=== PATIENT | female | born 1990 | race Caucasian/White ===

== ENCOUNTER 2018-07-15 06:12 | Inpatient (IN) | payer BC ==
[~2018-07-15] VITALS: Ht 167.6 cm; Wt 69.0 kg
[2018-07-15] VITALS (61 sets, daily range): BP systolic 99–148; BP diastolic 48–88
--- NOTE | 2018-07-15 06:48 | Emergency Room Report ---
History of Present Illness General Chief Complaint: Behavioral Complaint Source: EMS (Vance Zavala DO) Present Illness HPI Patient presents by paramedics and police department Patient was reported to have a self-inflicted laceration to the left arm There was question of suicidal ideation and attempt Upon arrival the patient herself is not verbal is responsive to physical stimuli Maintaining appropriate gag reflex However the history of present illness is significantly limited Unknown previous attempts Unknown other trauma (Vance Zavala DO) Allergies: Coded Allergies: No Known Allergies (Unverified , 07/15/18) Patient History Limited by: medical condition Past Medical History: see triage record Pertinent Family History: unable to obtain Reviewed Nursing Documentation: PMH: Agreed; PSxH: Agreed (Vance Zavala DO) Nursing Documentation-PMH Past Medical History: No Stated History (Vance Zavala DO) Review of Systems All Other Systems: limited - Other than the ones mentioned in the history of present illness all others are reviewed however they do stay limited due to the patient's mental status (Vance Zavala DO) Physical Exam Vital Signs Date Time Temp Pulse Resp B/P (MAP) Pulse Ox O2 Delivery O2 Flow Rate FiO2 07/15/18 06:07 97.9 109 18 123/67 98 Room Air Sp02 EP Interpretation: reviewed, normal General Appearance: mild distress - Patient appears altered Head: normocephalic, atraumatic Eyes: bilateral eye PERRL ENT: normal pharynx, TMs + canals normal, uvula midline Neck: supple, thyroid normal Respiratory: lungs clear, no respiratory distress, no retraction, no accessory muscle use Cardiovascular #1: regular rate, rhythm Gastrointestinal: non tender, soft Musculoskeletal: other - Patient withdrawing from physical stimuli Neurologic: responsive - As above otherwise decreased GCS, respirations appropriate Skin: other - Approximately 2-1/2 cm laceration mid left palmar aspect of the forearm Lymphatic: no adenopathy (Vance Zavala DO) Procedures Laceration/Wound Repair Laceration/Wound Repair : Consent: Emergent Wound Location: upper extremity Wound's Depth, Shape: into muscle Wound Length (cm): 2 Wound Explored: contaminated Irrigated w/ Saline (ccs): 200 Betadine Prep?: Yes Anesthesia: 1% Lidocaine Volume Anesthetic (ccs): 2 Wound Debrided: moderate Wound Repaired With: sutures Suture Size/Type: 4:0 Number of Sutures: 6 Patient Tolerated: Well Complications: None Progress After further irrigation and cleansing the laceration is fairly deep going through the dermis through the adipose and just into the superficial aspect of the muscle, I do not see any obvious tendon involvement, however patient is altered and cannot follow commands and have appropriate examination (Vance Zavala DO) Medical Decision Making Restraint Attestation Vance Miramontes DO, have personally evaluated this patient. Laboratory tests have been reviewed and addressed accordingly. The patient is deemed to present a danger to themselves and/or others. This is based on the exam, history ( provided by patient, EMS/[facility] and/or family) and observed or reported behavior. Attempts for non-invasive measures have been considered and/or attempted, however, have been futile. It is in the best interest of the nursing staff, the patient, and others involved in this patient's care that behavioral restraints be applied. Patient evaluation reveals the following: (Vance Zavala DO) Diagnostic Impression: Primary Impression: Behavioral change Additional Impressions: Suicide attempt Laceration ER Course Given the patient's history and presentation Repair of the laceration is performed Patient has further blood work to medically evaluate the patient Patient does have amphetamine and marijuana positive after prolonged observation has become awake and alert responsive patient does not answer questions regarding suicidal or homicidal thoughts as patient awakened and became more verbal and responsive, patient became agitated and wanted to get up and leave. she required restraints for this reason I spoke with parents in the room for approximately 15 minutes. During this time it was reported that the patient has extensive drug abuse history but had been doing better recently and kelley d a new job as well. Patient was somewhat agitated trying to sit up at the bed, had mainly incoherent speech but was trying to communicate. Just prior to the family arriving, patient had seemed somewhat less agitated, and speech had been more clear as well. patients vitals continued to be appropriate with a HR of 70 patient was given oral ativan and pending further evaluation with psychiatric specialty. Is further medically cleared and requires psychiatric evaluation Labs Test 07/15/18 06:50 White Blood Count 5.3 K/UL (4.8-10.8) Red Blood Count 4.12 M/UL (4.20-5.40) Hemoglobin 11.7 G/DL (12.0-16.0) Hematocrit 36.2 % (37.0-47.0) Mean Corpuscular Volume 88 FL (80-99) Mean Corpuscular Hemoglobin 28.5 PG (27.0-31.0) Mean Corpuscular Hemoglobin Concent 32.5 G/DL (32.0-36.0) Red Cell Distribution Width 13.1 % (11.6-14.8) Platelet Count 252 K/UL (150-450) Mean Platelet Volume 6.3 FL (6.5-10.1) Neutrophils (%) (Auto) 57.9 % (45.0-75.0) Lymphocytes (%) (Auto) 30.2 % (20.0-45.0) Monocytes (%) (Auto) 8.1 % (1.0-10.0) Eosinophils (%) (Auto) 2.9 % (0.0-3.0) Basophils (%) (Auto) 1.0 % (0.0-2.0) Urine HCG, Qualitative Negative (NEGATIVE) Sodium Level 142 MMOL/L (136-145) Potassium Level 3.1 MMOL/L (3.5-5.1) Chloride Level 107 MMOL/L (98-107) Carbon Dioxide Level 23 MMOL/L (21-32) Anion Gap 13 mmol/L (5-15) Blood Urea Nitrogen 14 mg/dL (7-18) Creatinine 0.7 MG/DL (0.55-1.30) Estimat Glomerular Filtration Rate > 60 mL/min (>60) Glucose Level 65 MG/DL (74-106) Calcium Level 8.9 MG/DL (8.5-10.1) Total Bilirubin 0.2 MG/DL (0.2-1.0) Aspartate Amino Transf (AST/SGOT) 37 U/L (15-37) Alanine Aminotransferase (ALT/SGPT) 36 U/L (12-78) Alkaline Phosphatase 73 U/L (46-116) Total Protein 8.2 G/DL (6.4-8.2) Albumin 4.1 G/DL (3.4-5.0) Globulin 4.1 g/dL Albumin/Globulin Ratio 1.0 (1.0-2.7) Salicylates Level 2.8 ug/mL (2.8-20) Urine Opiates Screen Negative (NEGATIVE) Acetaminophen Level < 2 MCG/ML (10-30) Urine Barbiturates Screen Negative (NEGATIVE) Phencyclidine (PCP) Screen Negative (NEGATIVE) Urine Amphetamines Screen Positive (NEGATIVE) Urine Benzodiazepines Screen Negative (NEGATIVE) Urine Cocaine Screen Negative (NEGATIVE) Urine Marijuana (THC) Screen Positive (NEGATIVE) Serum Alcohol 203 mg/dL (SachaalexsandramelizaVance ) ER Course Case was signed out to me for final disposition. Initially patient was supposed to be medically cleared and transferred to psychiatric facility. Patient's behavior however became more erratic. It appeared the patient was starting to respond to internal stimuli. Patient was given Ativan but without much improvement. Because of this patient continued to receive doses of Ativan as well as one dose of Geodon orally. Patient unfortunately deteriorated. Patient became more confused. Because of patient's progressively worsening condition patient required emergent intervention. In a monitor setting patient was given more Ativan to try to sedate her them patient was finally sedated but appeared to have some difficulty with maintaining her airway. There is concerned that because a severe amount overdose patient likely will require intubation to control her airway as well as to control sedation and treat the patient for her overdose. Case was discussed in detail with poison control. Patient was intubated. After intubation patient was given propofol for sedation. Patient appeared to be well sedated on propofol vital signs normalized and patient appeared to be more comfortable. At this time patient's left upper extremity laceration wound was reexposed. Unfortunately patient in her agitation had cause wound dehiscence. The wound was irrigated wound was prepared again. Case was discussed in detail with Dr. Jozef Alvarez patient will be admitted to the ICU. Case was also discussed with Dr. Mcintosh. Case was discussed with poison center. Because patient's EKG show evidence of QTC prolongation. Patient will be given magnesium 2 g. EKG interpretation. EKG shows normal sinus rhythm. QTC is slightly elongated. No evidence of ectopy. Rhythm strip interpretation: Normal sinus rhythm. Ventricular rate approximately 80s. No evidence of ectopy. Procedure note: Intubation procedure: Patient was preoxygenated and intubated using rapid sequence intubation. Patient was given rocuronium and etomidate. There was adequate paralysis. Patient's vocal cords was visualized with direct laryngoscopy. 7.5 ET tube was inserted. The balloon was inflated. There is good color change a CO2 detector. There is no complications associated procedure. Patient's O2 saturation remained 100% throughout the entire procedure. Patient tolerated the procedure without difficulty. Chest x-ray confirms good placement of ET tube. Laceration repair: Patient's left upper extremity was repaired using 3-0 Vicryl. The wound was irrigated sterilely prepared then the laceration was closed. Total length laceration was approximately 4 cm in length. There is no competitions social procedure. Patient told procedure without difficulty. X-ray interpretation: 1 view portable chest x-ray. Indication: Intubation. Findings: Normal lung. Normal heart size. Normal bone structure. ET tube in good position. Interpretation: Appropriate placement of ET tube. Normal lung structure otherwise. Electronically signed by Prudencio Muñoz MD Critical care note: Patient had a critical medical condition which untreated could potentially result in life or limb threatening injury. Total critical care time excluding procedures was approximately 45 minutes. Patient require emergent intervention. Labs Test 07/15/18 06:50 White Blood Count 5.3 K/UL (4.8-10.8) Red Blood Count 4.12 M/UL (4.20-5.40) Hemoglobin 11.7 G/DL (12.0-16.0) Hematocrit 36.2 % (37.0-47.0) Mean Corpuscular Volume 88 FL (80-99) Mean Corpuscular Hemoglobin 28.5 PG (27.0-31.0) Mean Corpuscular Hemoglobin Concent 32.5 G/DL (32.0-36.0) Red Cell Distribution Width 13.1 % (11.6-14.8) Platelet Count 252 K/UL (150-450) Mean Platelet Volume 6.3 FL (6.5-10.1) Neutrophils (%) (Auto) 57.9 % (45.0-75.0) Lymphocytes (%) (Auto) 30.2 % (20.0-45.0) Monocytes (%) (Auto) 8.1 % (1.0-10.0) Eosinophils (%) (Auto) 2.9 % (0.0-3.0) Basophils (%) (Auto) 1.0 % (0.0-2.0) Urine HCG, Qualitative Negative (NEGATIVE) Sodium Level 142 MMOL/L (136-145) Potassium Level 3.1 MMOL/L (3.5-5.1) Chloride Level 107 MMOL/L (98-107) Carbon Dioxide Level 23 MMOL/L (21-32) Anion Gap 13 mmol/L (5-15) Blood Urea Nitrogen 14 mg/dL (7-18) Creatinine 0.7 MG/DL (0.55-1.30) Estimat Glomerular Filtration Rate > 60 mL/min (>60) Glucose Level 65 MG/DL (74-106) Calcium Level 8.9 MG/DL (8.5-10.1) Total Bilirubin 0.2 MG/DL (0.2-1.0) Aspartate Amino Transf (AST/SGOT) 37 U/L (15-37) Alanine Aminotransferase (ALT/SGPT) 36 U/L (12-78) Alkaline Phosphatase 73 U/L (46-116) Total Protein 8.2 G/DL (6.4-8.2) Albumin 4.1 G/DL (3.4-5.0) Globulin 4.1 g/dL Albumin/Globulin Ratio 1.0 (1.0-2.7) Salicylates Level 2.8 ug/mL (2.8-20) Urine Opiates Screen Negative (NEGATIVE) Acetaminophen Level < 2 MCG/ML (10-30) Urine Barbiturates Screen Negative (NEGATIVE) Phencyclidine (PCP) Screen Negative (NEGATIVE) Urine Amphetamines Screen Positive (NEGATIVE) Urine Benzodiazepines Screen Negative (NEGATIVE) Urine Cocaine Screen Negative (NEGATIVE) Urine Marijuana (THC) Screen Positive (NEGATIVE) Serum Alcohol 203 mg/dL (Prudencio Muñoz MD) Rhythm Strip Diag. Results EP Interpretation: yes Rate: 88 Rhythm: NSR, no PVC's, no ectopy (Vance Zavala DO) Last Vital Signs Date Time Temp Pulse Resp B/P (MAP) Pulse Ox O2 Delivery O2 Flow Rate FiO2 07/15/18 06:07 97.9 109 18 123/67 98 Room Air Status: improved (Vance Zavala DO) Status: improved (Prudencio Muñoz MD) Condition: Improved Signed Out To: Dr muñoz, pending further psychiatric disposition (Vance Zavala DO) Vance Zavala DO Jul 15, 2018 06:48 Prudencio Muñoz MD Jul 15, 2018 20:11
[2018-07-15 07:29] LABS: EOSINOPHILS % (AUTO) 2.9 % (0.0-3.0); HEMATOCRIT 36.2 % (37.0-47.0); HEMOGLOBIN 11.7 G/DL (12.0-16.0); LYMPHOCYTES % (AUTO) 30.2 % (20.0-45.0); MEAN CORPUSCULAR VOLUME 88 FL (80-99); MONOCYTES % (AUTO) 8.1 % (1.0-10.0); NEUTROPHILS % (AUTO) 57.9 % (45.0-75.0); PLATELET COUNT 252 K/UL (150-450); RED BLOOD COUNT 4.12 M/UL (4.20-5.40); RED CELL DISTRIBUTION WIDTH 13.1 % (11.6-14.8); WHITE BLOOD COUNT 5.3 K/UL (4.8-10.8)
[2018-07-15 07:34] LABS: ANION GAP 13 mmol/L (5-15); BLOOD UREA NITROGEN 14 mg/dL (7-18); CALCIUM 8.9 MG/DL (8.5-10.1); CARBON DIOXIDE 23 MMOL/L (21-32); CHLORIDE 107 MMOL/L (98-107); CREATININE 0.7 MG/DL (0.55-1.30); POTASSIUM 3.1 MMOL/L (3.5-5.1); SODIUM 142 MMOL/L (136-145)
[2018-07-15 07:39] LABS: ALANINE AMINOTRANSFERASE 36 U/L (12-78); ALBUMIN 4.1 G/DL (3.4-5.0); ALKALINE PHOSPHATASE 73 U/L (46-116); ASPARTATE AMINO TRANSFERASE 37 U/L (15-37); BILIRUBIN,TOTAL 0.2 MG/DL (0.2-1.0)
[2018-07-15] MEDS ORDERED: LORazepam Inj 2mg/ml 1ml IV ONE ×7 (08:45→18:15)
[2018-07-15] MEDS ORDERED: D5 1/2NS 1,000 ML IV STA (10:35)
[2018-07-15] MEDS ORDERED: LORazepam 1mg tab ORAL ONE (12:00)
[2018-07-15] MEDS ORDERED: Haloperidol 5mg/ml Inj IM ONE (13:15)
[2018-07-15] MEDS ORDERED: DiphenhydrAMINE 50mg/ml Inj IVP ONE (15:30)
[2018-07-15] MEDS ORDERED: Ziprasidone 20mg cap ORAL ONE (16:15)
[2018-07-15] MEDS ORDERED: LORazepam Inj 2mg/ml 1ml ONE (18:08)
[2018-07-15] MEDS ORDERED: Propofol 200mg/20ml IV ONE (18:29)
[2018-07-15] MEDS ORDERED: Morphine Sulfate 4mg/ml Inj (IV/IM USE ONLY) IVP PRN (19:15)
[2018-07-15] MEDS ORDERED: Nitroglycerin Subl 0.4mg tab SL PRN (19:15)
[2018-07-15] MEDS ORDERED: Albuterol/Ipratropium 3ml neb HHN PRN (19:15)
[2018-07-15] MEDS ORDERED: Bacitracin Oint UD TOPIC ONE (20:04)
[2018-07-15] MEDS: D5 1/2NS 1,000 ML IV SCH (20:27)
[2018-07-15 20:48] LABS: HEMATOCRIT 31.2 % (37.0-47.0); HEMOGLOBIN 10.4 G/DL (12.0-16.0); MEAN CORPUSCULAR VOLUME 89 FL (80-99); PLATELET COUNT 212 K/UL (150-450); RED BLOOD COUNT 3.53 M/UL (4.20-5.40); RED CELL DISTRIBUTION WIDTH 12.7 % (11.6-14.8); WHITE BLOOD COUNT 11.6 K/UL (4.8-10.8)
[2018-07-15] MEDS: Heparin 5000 units/ml inj SUBQ SCH (21:00)
[2018-07-15 21:02] LABS: ANION GAP 12 mmol/L (5-15); BLOOD UREA NITROGEN 14 mg/dL (7-18); CALCIUM 7.9 MG/DL (8.5-10.1); CARBON DIOXIDE 23 MMOL/L (21-32); CHLORIDE 110 MMOL/L (98-107); CREATININE 0.7 MG/DL (0.55-1.30); POTASSIUM 4.1 MMOL/L (3.5-5.1); SODIUM 145 MMOL/L (136-145)
[2018-07-15 21:16] LABS: ALANINE AMINOTRANSFERASE 47 U/L (12-78); ALBUMIN 3.7 G/DL (3.4-5.0); ALBUMIN/GLOBULIN RATIO 1.1 (1.0-2.7); ALKALINE PHOSPHATASE 61 U/L (46-116); ASPARTATE AMINO TRANSFERASE 138 U/L (15-37); BILIRUBIN,TOTAL 0.4 MG/DL (0.2-1.0); CREATINE KINASE 9480 U/L (26-308); TRIGLYCERIDES 28 MG/DL (30-150)
[2018-07-15] MEDS ORDERED: Succinylcholine 20mg/ml 10ml vial ONE (22:29)
[2018-07-15] MEDS ORDERED: Etomidate 40mg/20ml Inj IV ONE (22:29)
[2018-07-15] MEDS ORDERED: Zemuron 50mg/5ml Inj IV ONE (22:29)
[2018-07-15] MEDS: LORazepam Inj 2mg/ml 1ml IV PRN (22:49)
[2018-07-16] VITALS (39 sets, daily range): BP systolic 99–156; BP diastolic 47–84
[2018-07-16] MEDS: LORazepam Inj 2mg/ml 1ml IV PRN ×2 (05:01→11:04)
[2018-07-16 08:27] LABS: BASOPHILS % (AUTO) 0.9 % (0.0-2.0); EOSINOPHILS % (AUTO) 1.2 % (0.0-3.0); HEMATOCRIT 31.3 % (37.0-47.0); HEMOGLOBIN 10.5 G/DL (12.0-16.0); LYMPHOCYTES % (AUTO) 19.6 % (20.0-45.0); MEAN CORPUSCULAR VOLUME 87 FL (80-99); MONOCYTES % (AUTO) 6.5 % (1.0-10.0); NEUTROPHILS % (AUTO) 71.8 % (45.0-75.0); PLATELET COUNT 212 K/UL (150-450); RED BLOOD COUNT 3.59 M/UL (4.20-5.40); WHITE BLOOD COUNT 7.3 K/UL (4.8-10.8)
[2018-07-16] MEDS: D5 1/2NS 1,000 ML IV SCH ×2 (08:30→21:45)
[2018-07-16 09:05] LABS: ALANINE AMINOTRANSFERASE 74 U/L (12-78); ALBUMIN 3.6 G/DL (3.4-5.0); ALKALINE PHOSPHATASE 62 U/L (46-116); ASPARTATE AMINO TRANSFERASE 230 U/L (15-37); BILIRUBIN,DIRECT 0.1 MG/DL (0.0-0.3); BILIRUBIN,TOTAL 0.5 MG/DL (0.2-1.0); LACTATE DEHYDROGENASE 478 U/L (81-234); PHOSPHORUS 2.4 MG/DL (2.5-4.9); TRIGLYCERIDES 70 MG/DL (30-150)
[2018-07-16] MEDS: Heparin 5000 units/ml inj SUBQ SCH ×2 (09:30→21:30)
--- NOTE | 2018-07-16 10:15 | Consultation ---
History of Present Illness General Date patient seen: Jul 16, 2018 Chief Complaint: Behavioral Complaint Present Illness HPI 28 year old female with hx of psychiatric disorder tried suicide with slashing her wrists, then called 911. She was agitated on arrival of paramedics. She was stabilized in ER. During the day she was extremely agitated and apparently 7 people were holding her down. She got Valium 10 mg iv and later on she had respiratory depression and was intubated. Allergies: Coded Allergies: No Known Allergies (Unverified , 07/15/18) Patient History Healthcare decision maker Resuscitation status Full Code Advanced Directive on File NO POA Past Medical/Surgical History Past Medical/Surgical History: (1) Suicide attempt Review of Systems All Other Systems: negative except mentioned in HPI Physical Exam General Appearance: WD/WN Lines, tubes and drains: peripheral HEENT: normocephalic Neck: non-tender, normal alignment Respiratory/Chest: chest wall non-tender, lungs clear Breasts: no masses Cardiovascular/Chest: normal peripheral pulses Abdomen: normal bowel sounds Genitourinary/Rectal: normal genital exam Extremities: normal range of motion Neurologic: cylinder inspector II-XII grossly normal Last 24 Hour Vital Signs Date Time Temp Pulse Resp B/P (MAP) Pulse Ox O2 Delivery O2 Flow Rate FiO2 07/16/18 10:00 82 19 111/61 (78) 100 07/16/18 09:30 81 19 117/60 (79) 100 07/16/18 09:17 19 114/62 Mechanical Ventilator 60 07/16/18 09:00 83 19 121/70 (87) 100 07/16/18 09:00 16 112/67 Mechanical Ventilator 60 07/16/18 08:30 81 19 115/62 (79) 100 07/16/18 08:00 85 07/16/18 08:00 Mechanical Ventilator 07/16/18 08:00 60 07/16/18 08:00 16 124/52 Mechanical Ventilator 60 07/16/18 08:00 99.1 82 17 112/62 (79) 100 07/16/18 07:30 85 19 110/65 (80) 100 07/16/18 07:00 81 16 45 07/16/18 07:00 19 114/62 Mechanical Ventilator 60 07/16/18 07:00 81 19 114/62 (79) 100 07/16/18 06:30 82 16 106/84 (91) 100 07/16/18 06:00 86 17 105/53 (70) 100 07/16/18 06:00 16 106/84 Mechanical Ventilator 60 07/16/18 05:00 84 17 103/51 (68) 100 07/16/18 05:00 17 103/51 Mechanical Ventilator 60 07/16/18 04:56 84 16 60 07/16/18 04:30 83 16 103/52 (69) 100 07/16/18 04:03 16 101/49 Mechanical Ventilator 60 07/16/18 04:00 60 07/16/18 04:00 82 07/16/18 04:00 99.3 82 17 101/49 (66) 100 07/16/18 04:00 Mechanical Ventilator 07/16/18 03:30 81 16 107/47 (67) 100 07/16/18 03:00 80 16 60 07/16/18 03:00 16 102/49 Mechanical Ventilator 60 07/16/18 03:00 80 16 102/49 (66) 100 07/16/18 02:30 80 16 104/50 (68) 100 07/16/18 02:00 79 16 104/52 (69) 100 07/16/18 02:00 16 104/52 Mechanical Ventilator 60 07/16/18 01:45 78 16 60 07/16/18 01:45 16 102/50 Mechanical Ventilator 60 07/16/18 01:30 97.8 80 16 101/50 (67) 100 07/16/18 01:30 16 101/50 Mechanical Ventilator 60 07/16/18 01:15 80 16 99/49 (66) 100 07/16/18 01:15 16 99/49 Mechanical Ventilator 60 07/16/18 01:00 81 16 102/49 (66) 100 07/16/18 01:00 16 102/49 Mechanical Ventilator 60 07/16/18 00:45 82 16 103/49 (67) 100 07/16/18 00:45 16 103/49 Mechanical Ventilator 60 07/16/18 00:30 84 16 100/49 (66) 100 07/16/18 00:30 16 100/49 Mechanical Ventilator 60 07/16/18 00:15 84 16 100/49 (66) 100 07/16/18 00:15 16 100/49 Mechanical Ventilator 60 07/16/18 00:00 87 07/16/18 00:00 87 16 101/54 (70) 100 07/16/18 00:00 60 07/16/18 00:00 Mechanical Ventilator 07/16/18 00:00 16 101/54 Mechanical Ventilator 60 07/16/18 00:00 60 07/15/18 23:45 86 16 99/48 (65) 100 07/15/18 23:45 16 99/48 Mechanical Ventilator 60 07/15/18 23:37 84 22 60 07/15/18 23:30 87 19 99/51 (67) 100 07/15/18 23:30 19 99/53 Mechanical Ventilator 60 07/15/18 23:17 23 103/53 Mechanical Ventilator 60 07/15/18 23:17 19 103/53 Mechanical Ventilator 60 07/15/18 23:15 92 23 103/53 (70) 100 07/15/18 23:00 84 19 100/52 (68) 100 07/15/18 22:30 76 16 120/68 (85) 100 07/15/18 22:00 77 14 119/65 (83) 100 07/15/18 21:30 98.6 79 14 115/67 (83) 100 07/15/18 21:30 14 115/67 Mechanical Ventilator 100 07/15/18 21:25 100 07/15/18 21:24 83 07/15/18 21:23 Mechanical Ventilator 07/15/18 21:15 83 07/15/18 21:15 15 117/61 Mechanical Ventilator 100 07/15/18 21:00 97.6 84 14 130/79 100 Mechanical Ventilator 100 07/15/18 20:55 97.6 84 14 130/79 100 Mechanical Ventilator 07/15/18 20:40 14 130/75 Mechanical Ventilator 100 07/15/18 20:40 80 14 130/75 100 Mechanical Ventilator 07/15/18 20:37 81 15 100 07/15/18 20:25 14 123/74 100 07/15/18 20:25 97.5 84 14 137/82 100 Mechanical Ventilator 07/15/18 20:10 14 139/84 Mechanical Ventilator 100 07/15/18 20:10 97.5 80 14 139/84 100 Mechanical Ventilator 07/15/18 19:55 85 14 129/68 100 Mechanical Ventilator 07/15/18 19:55 14 129/68 Mechanical Ventilator 100 07/15/18 19:40 84 14 132/71 100 Mechanical Ventilator 07/15/18 19:40 14 132/71 Mechanical Ventilator 100 07/15/18 19:25 80 14 105/68 100 Mechanical Ventilator 07/15/18 19:25 14 105/68 Mechanical Ventilator 100 07/15/18 19:10 98.4 78 19 117/88 100 Mechanical Ventilator 100 07/15/18 19:10 14 Mechanical Ventilator 100 07/15/18 19:10 19 117/88 Mechanical Ventilator 100 07/15/18 18:55 98.4 86 14 113/83 100 Mechanical Ventilator 100 07/15/18 18:55 82 16 100 Mechanical Ventilator 07/15/18 18:55 14 113/83 Mechanical Ventilator 100 07/15/18 18:53 14 117/83 Mechanical Ventilator 100 07/15/18 18:53 98.4 86 14 117/83 100 Mechanical Ventilator 100 07/15/18 18:40 74 16 99 Non-Rebreather 07/15/18 18:35 80 14 Non-Rebreather 100 07/15/18 18:25 67 15 100 Room Air 07/15/18 18:10 66 18 100 Room Air 07/15/18 17:55 64 20 100 Room Air 07/15/18 17:40 73 19 99 Room Air 07/15/18 17:25 78 19 100 Room Air 07/15/18 17:10 84 20 100 Room Air 07/15/18 16:55 74 18 99 Room Air 07/15/18 16:40 86 16 100 Room Air 07/15/18 16:35 80 14 100 07/15/18 16:25 78 20 99 Room Air 07/15/18 16:10 98.4 86 18 124/72 100 Room Air 07/15/18 16:10 86 18 100 Room Air 07/15/18 15:55 74 20 100 Room Air 07/15/18 15:40 74 20 100 Room Air 07/15/18 15:25 76 18 99 Room Air 07/15/18 15:10 76 18 99 Room Air 07/15/18 14:55 80 22 100 Room Air 07/15/18 14:40 76 20 99 Room Air 07/15/18 14:25 80 18 100 Room Air 07/15/18 14:10 84 16 99 Room Air 07/15/18 13:55 72 16 100 Room Air 07/15/18 13:40 88 14 99 Room Air 07/15/18 13:25 76 16 100 Room Air 07/15/18 13:25 98.0 76 16 130/74 100 Room Air 07/15/18 13:10 88 14 99 Room Air 07/15/18 12:55 86 16 100 Room Air 07/15/18 12:40 74 18 100 Room Air 07/15/18 12:25 88 22 99 Room Air 07/15/18 12:10 78 20 98 Room Air 07/15/18 11:55 82 18 100 Room Air 07/15/18 11:40 84 16 99 Room Air 07/15/18 11:25 72 20 97 Room Air 07/15/18 11:10 80 18 99 Room Air 07/15/18 10:55 74 16 100 Room Air 07/15/18 10:40 97.5 80 18 126/80 99 Room Air 07/15/18 10:40 80 18 99 Room Air 07/15/18 10:25 78 16 98 Room Air 07/15/18 10:10 66 18 99 Room Air Intake and Output 07/15/18 07/16/18 18:59 06:59 Intake Total 964.298 ml Output Total 2385 ml Balance -1420.702 ml Intake Oral 0 ml IV Total 964.298 ml Output Urine Total 2385 ml # Voids 1 Laboratory Tests Test 07/15/18 20:33 07/15/18 23:37 07/16/18 07:35 White Blood Count 11.6 K/UL (4.8-10.8) #H 7.3 K/UL (4.8-10.8) Red Blood Count 3.53 M/UL (4.20-5.40) L 3.59 M/UL (4.20-5.40) L Hemoglobin 10.4 G/DL (12.0-16.0) L 10.5 G/DL (12.0-16.0) L Hematocrit 31.2 % (37.0-47.0) L 31.3 % (37.0-47.0) L Mean Corpuscular Volume 89 FL (80-99) 87 FL (80-99) Mean Corpuscular Hemoglobin 29.4 PG (27.0-31.0) 29.2 PG (27.0-31.0) Mean Corpuscular Hemoglobin Concent 33.2 G/DL (32.0-36.0) 33.6 G/DL (32.0-36.0) Red Cell Distribution Width 12.7 % (11.6-14.8) 13.0 % (11.6-14.8) Platelet Count 212 K/UL (150-450) 212 K/UL (150-450) Mean Platelet Volume 6.0 FL (6.5-10.1) L 6.5 FL (6.5-10.1) Neutrophils (%) (Auto) % (45.0-75.0) 71.8 % (45.0-75.0) Lymphocytes (%) (Auto) % (20.0-45.0) 19.6 % (20.0-45.0) L Monocytes (%) (Auto) % (1.0-10.0) 6.5 % (1.0-10.0) Eosinophils (%) (Auto) % (0.0-3.0) 1.2 % (0.0-3.0) Basophils (%) (Auto) % (0.0-2.0) 0.9 % (0.0-2.0) Differential Total Cells Counted 100 Neutrophils % (Manual) 82 % (45-75) H Lymphocytes % (Manual) 14 % (20-45) L Monocytes % (Manual) 2 % (1-10) Eosinophils % (Manual) 0 % (0-3) Basophils % (Manual) 0 % (0-2) Band Neutrophils 2 % (0-8) Platelet Estimate Adequate Platelet Morphology Normal Red Blood Cell Morphology Normal Sodium Level 145 MMOL/L (136-145) Potassium Level 4.1 MMOL/L (3.5-5.1) Chloride Level 110 MMOL/L (98-107) H Carbon Dioxide Level 23 MMOL/L (21-32) Anion Gap 12 mmol/L (5-15) Blood Urea Nitrogen 14 mg/dL (7-18) Creatinine 0.7 MG/DL (0.55-1.30) Estimat Glomerular Filtration Rate > 60 mL/min (>60) Glucose Level 81 MG/DL (74-106) Calcium Level 7.9 MG/DL (8.5-10.1) L Total Bilirubin 0.4 MG/DL (0.2-1.0) 0.5 MG/DL (0.2-1.0) Aspartate Amino Transf (AST/SGOT) 138 U/L (15-37) H 230 U/L (15-37) H Alanine Aminotransferase (ALT/SGPT) 47 U/L (12-78) 74 U/L (12-78) Alkaline Phosphatase 61 U/L (46-116) 62 U/L (46-116) Total Creatine Kinase 9480 U/L (26-308) H Troponin I 0.007 ng/mL (0.000-0.056) Total Protein 7.2 G/DL (6.4-8.2) 6.9 G/DL (6.4-8.2) Albumin 3.7 G/DL (3.4-5.0) 3.6 G/DL (3.4-5.0) Globulin 3.5 g/dL Albumin/Globulin Ratio 1.1 (1.0-2.7) Triglycerides Level 28 MG/DL (30-150) L 70 MG/DL (30-150) Arterial Blood pH 7.435 (7.350-7.450) Arterial Blood Partial Pressure CO2 32.3 mmHg (35.0-45.0) L Arterial Blood Partial Pressure O2 292.6 mmHg (75.0-100.0) H Arterial Blood HCO3 21.2 mmol/L (22.0-26.0) L Arterial Blood Oxygen Saturation 99.0 % (95-100) Arterial Blood Base Excess -2.4 (-2-2) L Macho Test Positive Prothrombin Time 10.7 SEC (9.30-11.50) Prothromb Time International Ratio 1.0 (0.9-1.1) Activated Partial Thromboplast Time 23 SEC (23-33) Phosphorus Level 2.4 MG/DL (2.5-4.9) L Direct Bilirubin 0.1 MG/DL (0.0-0.3) Lactate Dehydrogenase 478 U/L (81-234) H Height (Feet): 5 Height (Inches): 6.00 Weight (Pounds): 150 Medications Current Medications Medications (Trade) Dose Ordered Sig/Zach Route PRN Reason Start Time Stop Time Status Last Admin Dose Admin Acetaminophen (Tylenol) 650 mg Q4H PRN ORAL Fever 07/15/18 19:15 08/14/18 19:14 Albuterol/ Ipratropium (Albuterol/ Ipratropium) 3 ml Q4H PRN HHN Shortness of Breath 07/15/18 19:15 07/20/18 19:14 Dextrose (Dextrose 50%) 25 ml Q30M PRN IV Hypoglycemia 07/15/18 19:15 08/14/18 19:14 Dextrose (Dextrose 50%) 50 ml Q30M PRN IV Hypoglycemia 07/15/18 19:15 08/14/18 19:14 Dextrose/Sodium Chloride 1,000 ml @ 75 mls/hr [id number] IV 07/15/18 19:04 08/14/18 19:03 07/16/18 08:30 Haloperidol Lactate 10 mg/ Dextrose 57 ml @ 224 mls/hr ONCE ONCE IVPB 07/16/18 10:15 07/16/18 10:30 UNV Heparin Sodium (Porcine) (Heparin 5000 units/ml) 5,000 units EVERY 12 HOURS SUBQ 07/15/18 21:00 08/14/18 20:59 07/16/18 09:30 Lorazepam (Ativan 2mg/ml 1ml) 2 mg Q2H PRN IV agitation 07/15/18 19:15 07/22/18 19:14 07/16/18 05:01 Morphine Sulfate (Morphine Sulfate) 4 mg Q4H PRN IVP Severe Pain (Pain Scale 7-10) 07/15/18 19:15 07/22/18 19:14 07/15/18 23:08 Nitroglycerin (Ntg) 0.4 mg Q5M PRN SL Prn Chest Pain 07/15/18 19:15 08/14/18 19:14 Ondansetron HCl (Zofran) 4 mg Q6H PRN IVP Nausea & Vomiting 07/15/18 19:15 08/14/18 19:14 07/15/18 23:08 Propofol 100 ml @ 0 mls/hr Q24H IV 07/16/18 04:00 07/18/18 03:59 07/16/18 09:17 Assessment/Plan Problem List: (1) Acute respiratory failure ICD Codes: J96.00 - Acute respiratory failure, unspecified whether with hypoxia or hypercapnia SNOMED: 45629336 (2) Suicide attempt ICD Codes: T14.91XA - Suicide attempt, initial encounter SNOMED: 34742753 (3) Delirium ICD Codes: R41.0 - Disorientation, unspecified SNOMED: 8474133 Assessment/Plan Haldol for agitation extubate when awake dvt prophylaxis iv fluids check electrolytes psych evaluation. Ubaldo Mcintosh MD Jul 16, 2018 10:15
[2018-07-16] MEDS ORDERED: Haloperidol Lactate 10 MG in D5W 55 ML IVPB ONE (11:00)
[2018-07-16] MEDS ORDERED: Tubing IV Secondary IV ONE (17:40)
[2018-07-16] MEDS ORDERED: NS 275ml ONE (17:40)
[2018-07-16] MEDS ORDERED: D5 1/2NS 1000ml IV ONE (17:40)
--- NOTE | 2018-07-16 17:49 | Diagnostic Imaging Report ---
Indication: Status post intubation Technique: One view of the chest Comparison: none Findings: There is an endotracheal tube in place, tip projected just below the thoracic inlet. The pleural spaces are clear. There is bilateral perihilar interstitial airspace disease. The heart size is normal Impression: Satisfactory endotracheal intubation Bilateral perihilar interstitial and alveolar infiltrates versus edema This agrees with the preliminary interpretation provided by the emergency room physician
--- NOTE | 2018-07-16 18:01 | Cardiology Report ---
APPROVED REPORT EXAM: Two-dimensional and M-mode echocardiogram with Doppler and color Doppler. INDICATION Left Ventricular Function M-Mode DIMENSIONS IVSd0.9 (0.7-1.1cm)Left Atrium (MM)3.7 (1.6-4.0cm) LVDd5.2 (3.5-5.6cm)Aortic Root2.1 (2.0-3.7cm) PWd0.8 (0.7-1.1cm)Aortic Cusp Exc.2.0 (1.5-2.0cm) LVDs3.1 (2.5-4.0cm) PWs1.3 cm Normal left ventricular chamber size, systolic function and wall motion. Left ventricular ejection fraction estimated to be 55 %. No evidence of left ventricular hypertrophy. No evidence of pericardial effusion. All other cardiac chamber sizes are within normal limits. Normal aortic valve structure with adequate cusp excursion. Mildly thickened mitral valve leaflets with normal excursion. Mild mitral annulus and aortic root calcification. Normal pulmonic valve structure. Normal tricuspid valve structure. IVC is normal in size with physiological collapse. A color flow and spectral Doppler study was performed and revealed: Moderate aortic insufficiency. Mild to moderate mitral regurgitation. Normal left ventricular diastolic function. Trace tricuspid regurgitation. Tricuspid systolic velocities suggests peak right ventricular systolic pressure of 34 mmHg. Mild pulmonic regurgitation present.
--- NOTE | 2018-07-16 18:24 | Cardiology Report ---
APPROVED REPORT EKG Measurement Heart [id number] Normal sinus rhythm Prolonged QT Abnormal ECG
--- NOTE | 2018-07-16 20:25 | Consultation ---
History of Present Illness General Date patient seen: Jul 16, 2018 Chief Complaint: Behavioral Complaint Reason for Consultation: left forearm laceration Present Illness HPI 28 year old female with known history of poly substance drug abuse was found down at home by family. Family states they noted her unresponsive and blood around the house. on exam was noted to have self inflicted left forearm laceration. EMS [place] [facility] [place] and admitted to ICU for care and management. Currently in ICU intubated. Per report has been very agitated. Left forearm laceration was washed and sutured prior. During episode of agitation wound dehiscence as she was combative requiring restraints. Surgery called to evaluate wound and assist with care / management. patient seen, chart reviewed, patient examined. Allergies: Coded Allergies: No Known Allergies (Unverified , 07/15/18) Patient History Limited by: medical condition History Provided By: Family Member, Medical Record, PMD Healthcare decision maker Resuscitation status Full Code Advanced Directive on File NO POA Past Medical/Surgical History Past Medical/Surgical History: (1) Medical clearance for psychiatric admission (2) Respiratory distress (3) Diphenhydramine overdose (4) Laceration (5) Acute respiratory failure (6) Delirium (7) Behavioral change (8) Suicide attempt Review of Systems ROS Narrative cannot obtain given medical condition Physical Exam General Appearance: no apparent distress Lines, tubes and drains: peripheral HEENT: atraumatic, mucous membranes moist Neck: normal inspection Respiratory/Chest: lungs clear, normal breath sounds, on vent Cardiovascular/Chest: normal rate, regular rhythm Abdomen: normal bowel sounds, soft, no organomegaly, no mass Extremities: other - 5-6 cm left forearm laceration distally on ventral aspect. 3mm skin seperation and 1cm deep. no involved vasculature and not deep to fascia. subcutaneous. no bleeding. no infection. good pulses. Skin Exam: warm/dry Neurologic: other Last 24 Hour Vital Signs Date Time Temp Pulse Resp B/P (MAP) Pulse Ox O2 Delivery O2 Flow Rate FiO2 07/16/18 20:00 98.8 81 23 104/61 (75) 99 07/16/18 19:00 78 24 121/69 (86) 100 07/16/18 18:00 80 24 156/75 (102) 99 07/16/18 17:00 82 23 107/70 (82) 99 07/16/18 16:00 79 07/16/18 16:00 Room Air 07/16/18 16:00 98.6 79 23 101/59 (73) 99 07/16/18 15:00 88 16 110/70 (83) 100 07/16/18 14:00 83 16 119/66 (83) 100 07/16/18 13:32 Room Air 21 07/16/18 13:30 Room Air 07/16/18 13:00 83 16 120/69 (86) 100 07/16/18 12:51 71 16 45 07/16/18 12:45 16 120/88 Mechanical Ventilator 60 07/16/18 12:45 16 120/69 Mechanical Ventilator 60 07/16/18 12:45 16 120/88 Mechanical Ventilator 60 07/16/18 12:45 16 120/88 Mechanical Ventilator 60 07/16/18 12:30 16 110/80 Mechanical Ventilator 60 07/16/18 12:30 16 110/80 Mechanical Ventilator 60 07/16/18 12:30 16 110/80 Mechanical Ventilator 60 07/16/18 12:30 16 110/80 Mechanical Ventilator 60 07/16/18 12:30 85 16 110/80 (90) 100 07/16/18 12:15 16 115/60 Mechanical Ventilator 60 07/16/18 12:15 16 115/79 Mechanical Ventilator 60 07/16/18 12:15 16 115/79 Mechanical Ventilator 60 07/16/18 12:15 16 115/79 Mechanical Ventilator 60 07/16/18 12:00 98.9 82 17 126/65 (85) 100 07/16/18 12:00 16 115/63 Mechanical Ventilator 60 07/16/18 12:00 83 07/16/18 12:00 60 07/16/18 12:00 Mechanical Ventilator 07/16/18 11:30 80 19 122/66 (84) 100 07/16/18 11:00 83 19 115/66 (82) 100 07/16/18 11:00 16 109/64 Mechanical Ventilator 60 07/16/18 10:40 74 16 45 07/16/18 10:30 87 19 110/62 (78) 100 07/16/18 10:00 82 19 111/61 (78) 100 07/16/18 10:00 16 111/62 Mechanical Ventilator 60 07/16/18 09:30 81 19 117/60 (79) 100 07/16/18 09:17 19 114/62 Mechanical Ventilator 60 07/16/18 09:16 79 16 45 07/16/18 09:00 83 19 121/70 (87) 100 07/16/18 09:00 16 112/67 Mechanical Ventilator 60 07/16/18 08:30 81 19 115/62 (79) 100 07/16/18 08:00 85 07/16/18 08:00 Mechanical Ventilator 07/16/18 08:00 60 07/16/18 08:00 16 124/52 Mechanical Ventilator 60 07/16/18 08:00 99.1 82 17 112/62 (79) 100 07/16/18 07:30 85 19 110/65 (80) 100 07/16/18 07:00 81 16 45 07/16/18 07:00 19 114/62 Mechanical Ventilator 60 07/16/18 07:00 81 19 114/62 (79) 100 07/16/18 06:30 82 16 106/84 (91) 100 07/16/18 06:00 86 17 105/53 (70) 100 07/16/18 06:00 16 106/84 Mechanical Ventilator 60 07/16/18 05:00 84 17 103/51 (68) 100 07/16/18 05:00 17 103/51 Mechanical Ventilator 60 07/16/18 04:56 84 16 60 07/16/18 04:30 83 16 103/52 (69) 100 07/16/18 04:03 16 101/49 Mechanical Ventilator 60 07/16/18 04:00 60 07/16/18 04:00 82 07/16/18 04:00 99.3 82 17 101/49 (66) 100 07/16/18 04:00 Mechanical Ventilator 07/16/18 03:30 81 16 107/47 (67) 100 07/16/18 03:00 80 16 60 07/16/18 03:00 16 102/49 Mechanical Ventilator 60 07/16/18 03:00 80 16 102/49 (66) 100 07/16/18 02:30 80 16 104/50 (68) 100 07/16/18 02:00 79 16 104/52 (69) 100 07/16/18 02:00 16 104/52 Mechanical Ventilator 60 07/16/18 01:45 78 16 60 07/16/18 01:45 16 102/50 Mechanical Ventilator 60 07/16/18 01:30 97.8 80 16 101/50 (67) 100 07/16/18 01:30 16 101/50 Mechanical Ventilator 60 07/16/18 01:15 80 16 99/49 (66) 100 07/16/18 01:15 16 99/49 Mechanical Ventilator 60 07/16/18 01:15 20 99/49 Mechanical Ventilator 100 07/16/18 01:00 81 16 102/49 (66) 100 07/16/18 01:00 20 100/49 Mechanical Ventilator 100 07/16/18 01:00 16 102/49 Mechanical Ventilator 60 07/16/18 00:45 82 16 103/49 (67) 100 07/16/18 00:45 16 103/49 Mechanical Ventilator 60 07/16/18 00:30 84 16 100/49 (66) 100 07/16/18 00:30 16 100/49 Mechanical Ventilator 60 07/16/18 00:30 20 100/44 Mechanical Ventilator 100 07/16/18 00:15 84 16 100/49 (66) 100 07/16/18 00:15 16 100/49 Mechanical Ventilator 60 07/16/18 00:15 20 99/44 Mechanical Ventilator 100 07/16/18 00:00 87 07/16/18 00:00 87 16 101/54 (70) 100 07/16/18 00:00 60 07/16/18 00:00 Mechanical Ventilator 07/16/18 00:00 20 101/54 Mechanical Ventilator 100 07/16/18 00:00 16 101/54 Mechanical Ventilator 60 07/16/18 00:00 60 07/15/18 23:45 86 16 99/48 (65) 100 07/15/18 23:45 20 99/48 Mechanical Ventilator 100 07/15/18 23:45 16 99/48 Mechanical Ventilator 60 07/15/18 23:37 84 22 60 07/15/18 23:30 87 19 99/51 (67) 100 07/15/18 23:30 18 99/53 Mechanical Ventilator 100 07/15/18 23:30 19 99/53 Mechanical Ventilator 60 07/15/18 23:17 23 103/53 Mechanical Ventilator 60 07/15/18 23:17 19 103/53 Mechanical Ventilator 60 07/15/18 23:15 92 23 103/53 (70) 100 07/15/18 23:00 84 19 100/52 (68) 100 07/15/18 22:30 76 16 120/68 (85) 100 07/15/18 22:30 20 117/65 Mechanical Ventilator 100 07/15/18 22:00 77 14 119/65 (83) 100 07/15/18 21:30 98.6 79 14 115/67 (83) 100 07/15/18 21:30 14 115/67 Mechanical Ventilator 07/15/18 21:25 100 07/15/18 21:24 83 07/15/18 21:23 Mechanical Ventilator 07/15/18 21:15 83 07/15/18 21:15 15 117/61 Mechanical Ventilator 100 07/15/18 21:00 97.6 84 14 130/79 100 Mechanical Ventilator 07/15/18 20:55 97.6 84 14 130/79 100 Mechanical Ventilator 07/15/18 20:55 20 128/65 Mechanical Ventilator 07/15/18 20:40 14 130/75 Mechanical Ventilator 07/15/18 20:40 80 14 130/75 100 Mechanical Ventilator 07/15/18 20:37 81 15 100 07/15/18 20:25 14 123/74 100 07/15/18 20:25 97.5 84 14 137/82 100 Mechanical Ventilator Intake and Output 07/15/18 07/16/18 19:00 07:00 Intake Total 1059.708 ml Output Total 2415 ml Balance -1355.292 ml Intake Oral 0 ml IV Total 1059.708 ml Output Urine Total 2415 ml Laboratory Tests Test 07/15/18 20:33 07/15/18 23:37 07/16/18 07:35 07/16/18 13:15 White Blood Count 11.6 K/UL (4.8-10.8) #H 7.3 K/UL (4.8-10.8) Red Blood Count 3.53 M/UL (4.20-5.40) L 3.59 M/UL (4.20-5.40) L Hemoglobin 10.4 G/DL (12.0-16.0) L 10.5 G/DL (12.0-16.0) L Hematocrit 31.2 % (37.0-47.0) L 31.3 % (37.0-47.0) L Mean Corpuscular Volume 89 FL (80-99) 87 FL (80-99) Mean Corpuscular Hemoglobin 29.4 PG (27.0-31.0) 29.2 PG (27.0-31.0) Mean Corpuscular Hemoglobin Concent 33.2 G/DL (32.0-36.0) 33.6 G/DL (32.0-36.0) Red Cell Distribution Width 12.7 % (11.6-14.8) 13.0 % (11.6-14.8) Platelet Count 212 K/UL (150-450) 212 K/UL (150-450) Mean Platelet Volume 6.0 FL (6.5-10.1) L 6.5 FL (6.5-10.1) Neutrophils (%) (Auto) % (45.0-75.0) 71.8 % (45.0-75.0) Lymphocytes (%) (Auto) % (20.0-45.0) 19.6 % (20.0-45.0) L Monocytes (%) (Auto) % (1.0-10.0) 6.5 % (1.0-10.0) Eosinophils (%) (Auto) % (0.0-3.0) 1.2 % (0.0-3.0) Basophils (%) (Auto) % (0.0-2.0) 0.9 % (0.0-2.0) Differential Total Cells Counted 100 Neutrophils % (Manual) 82 % (45-75) H Lymphocytes % (Manual) 14 % (20-45) L Monocytes % (Manual) 2 % (1-10) Eosinophils % (Manual) 0 % (0-3) Basophils % (Manual) 0 % (0-2) Band Neutrophils 2 % (0-8) Platelet Estimate Adequate Platelet Morphology Normal Red Blood Cell Morphology Normal Sodium Level 145 MMOL/L (136-145) Potassium Level 4.1 MMOL/L (3.5-5.1) Chloride Level 110 MMOL/L (98-107) H Carbon Dioxide Level 23 MMOL/L (21-32) Anion Gap 12 mmol/L (5-15) Blood Urea Nitrogen 14 mg/dL (7-18) Creatinine 0.7 MG/DL (0.55-1.30) Estimat Glomerular Filtration Rate > 60 mL/min (>60) Glucose Level 81 MG/DL (74-106) Calcium Level 7.9 MG/DL (8.5-10.1) L Total Bilirubin 0.4 MG/DL (0.2-1.0) 0.5 MG/DL (0.2-1.0) Aspartate Amino Transf (AST/SGOT) 138 U/L (15-37) H 230 U/L (15-37) H Alanine Aminotransferase (ALT/SGPT) 47 U/L (12-78) 74 U/L (12-78) Alkaline Phosphatase 61 U/L (46-116) 62 U/L (46-116) Total Creatine Kinase 9480 U/L (26-308) H Troponin I 0.007 ng/mL (0.000-0.056) Total Protein 7.2 G/DL (6.4-8.2) 6.9 G/DL (6.4-8.2) Albumin 3.7 G/DL (3.4-5.0) 3.6 G/DL (3.4-5.0) Globulin 3.5 g/dL Albumin/Globulin Ratio 1.1 (1.0-2.7) Triglycerides Level 28 MG/DL (30-150) L 70 MG/DL (30-150) Arterial Blood pH 7.435 (7.350-7.450) 7.406 (7.350-7.450) Arterial Blood Partial Pressure CO2 32.3 mmHg (35.0-45.0) L 34.8 mmHg (35.0-45.0) L Arterial Blood Partial Pressure O2 292.6 mmHg (75.0-100.0) H 159.3 mmHg (75.0-100.0) H Arterial Blood HCO3 21.2 mmol/L (22.0-26.0) L 21.4 mmol/L (22.0-26.0) L Arterial Blood Oxygen Saturation 99.0 % (95-100) 98.6 % (95-100) Arterial Blood Base Excess -2.4 (-2-2) L -2.8 (-2-2) L Macho Test Positive Positive Prothrombin Time 10.7 SEC (9.30-11.50) Prothromb Time International Ratio 1.0 (0.9-1.1) Activated Partial Thromboplast Time 23 SEC (23-33) Phosphorus Level 2.4 MG/DL (2.5-4.9) L Direct Bilirubin 0.1 MG/DL (0.0-0.3) Lactate Dehydrogenase 478 U/L (81-234) H Height (Feet): 5 Height (Inches): 6.00 Weight (Pounds): 150 Medications Current Medications Medications (Trade) Dose Ordered Sig/Zach Route PRN Reason Start Time Stop Time Status Last Admin Dose Admin Acetaminophen (Tylenol) 650 mg Q4H PRN ORAL Fever 07/15/18 19:15 08/14/18 19:14 Albuterol/ Ipratropium (Albuterol/ Ipratropium) 3 ml Q4H PRN HHN Shortness of Breath 07/15/18 19:15 07/20/18 19:14 Dextrose (Dextrose 50%) 25 ml Q30M PRN IV Hypoglycemia 07/15/18 19:15 08/14/18 19:14 Dextrose (Dextrose 50%) 50 ml Q30M PRN IV Hypoglycemia 07/15/18 19:15 08/14/18 19:14 Dextrose/Sodium Chloride 1,000 ml @ 75 mls/hr [id number] IV 07/15/18 19:04 08/14/18 19:03 07/16/18 08:30 Diphenhydramine HCl (Benadryl) 50 mg TID ORAL 07/16/18 18:00 08/15/18 17:59 Haloperidol (Haldol) 5 mg TID ORAL 07/16/18 18:00 08/15/18 17:59 Heparin Sodium (Porcine) (Heparin 5000 units/ml) 5,000 units EVERY 12 HOURS SUBQ 07/15/18 21:00 08/14/18 20:59 07/16/18 09:30 Lorazepam (Ativan 2mg/ml 1ml) 2 mg Q2H PRN IV agitation 07/15/18 19:15 07/22/18 19:14 07/16/18 11:04 Morphine Sulfate (Morphine Sulfate) 4 mg Q4H PRN IVP Severe Pain (Pain Scale 7-10) 07/15/18 19:15 07/22/18 19:14 07/15/18 23:08 Nitroglycerin (Ntg) 0.4 mg Q5M PRN SL Prn Chest Pain 07/15/18 19:15 08/14/18 19:14 Ondansetron HCl (Zofran) 4 mg Q6H PRN IVP Nausea & Vomiting 07/15/18 19:15 08/14/18 19:14 07/15/18 23:08 Assessment/Plan Problem List: (1) Laceration Assessment & Plan: left forearm laceration 5-6cm on ventral aspect with 3mm skin skin separation. prior sutures noted to be dislodged. 1cm deep in subcutaneous tissue but no involved structures. vascular exam benign. wound cleaned at bedside after evaluation. given recent events plan for reapproximation using steri-strips. moderate risk for infection / dehiscence if combative again. was able to reapproximate skin edges without tension with steri-strips. will monitor wound to ensure good healing and intervene as needed thank you for allowing me to participate in patients care. SNOMED: [id number] Ric Diaz Jul 16, 2018 20:25
--- NOTE | 2018-07-16 20:46 | History and Physical Report ---
DATE OF ADMISSION: 07/15/2018 TIME SEEN: On 07/16/2018, at approximate time of 1 p.m. CONSULTANTS: 1. Ubaldo Mcintosh M.D. 2. Bart Meadows M.D. CHIEF COMPLAINT: Overdose on Benadryl, respiratory failure, possible suicidal attempt. BRIEF HISTORY: This is a 28-year-old female, who presents to [place] ER last night after ingesting multiple doses of Benadryl apparently per history. The patient shortly thereafter went into respiratory failure, was intubated, and admitted to ICU for further care. Currently intubated, sedated, lethargic, in ICU, nonverbal. REVIEW OF SYSTEMS: Unavailable. PAST MEDICAL HISTORY: Includes suicidal attempt. PAST SURGICAL HISTORY: Unknown. ALLERGIES: Denies. MEDICATIONS: Include propofol, Haldol, succinylcholine, heparin, albuterol, Zofran, nitroglycerin, morphine. SOCIAL HISTORY: Unable to obtain secondary to the patient's condition . PHYSICAL EXAMINATION: GENERAL: Intubated, sedated, lethargic, in bed in ICU, nonverbal. VITAL SIGNS: Pulse is 83, respirations 16, blood pressure 115/63. CARDIOVASCULAR: No murmur. LUNGS: Poor air exchange. ABDOMEN: Bowel sounds positive. Nontender. Nondistended. EXTREMITIES: Show no cyanosis, clubbing, or edema. NEUROLOGIC: The patient moves extremities, but slightly agitated now. LABORATORY DATA: Hemoglobin and hematocrit is 10/31, otherwise CBC is normal. BMP shows chloride 110, otherwise AST is 138 and ALT is 74. CK is 9480. Urine-tox is positive for amphetamine and marijuana. INR is 1.0. HCG is negative. ASSESSMENT: Overdose on Benadryl, respiratory failure, suicidal attempt, anemia, drug abuse. PLAN: Vent per Pulmonary. IV fluid. Dietary followup. Dr. Mcintosh, Dr. Jaramillo, and Dr. Whalen to consult. We will continue to follow this patient medically. Jozef Alvarez D.O. DR: Angelic JOB#: [id number] CC:
[2018-07-17] VITALS (23 sets, daily range): BP systolic 100–162; BP diastolic 47–71
[2018-07-17 05:37] LABS: BASOPHILS % (AUTO) 0.7 % (0.0-2.0); EOSINOPHILS % (AUTO) 1.9 % (0.0-3.0); HEMATOCRIT 31.5 % (37.0-47.0); HEMOGLOBIN 10.3 G/DL (12.0-16.0); LYMPHOCYTES % (AUTO) 25.9 % (20.0-45.0); MEAN CORPUSCULAR VOLUME 88 FL (80-99); MONOCYTES % (AUTO) 6.4 % (1.0-10.0); PLATELET COUNT 197 K/UL (150-450); RED BLOOD COUNT 3.56 M/UL (4.20-5.40); RED CELL DISTRIBUTION WIDTH 13.5 % (11.6-14.8); WHITE BLOOD COUNT 4.7 K/UL (4.8-10.8)
[2018-07-17 05:50] LABS: ANION GAP 9 mmol/L (5-15); BLOOD UREA NITROGEN 6 mg/dL (7-18); CALCIUM 7.7 MG/DL (8.5-10.1); CARBON DIOXIDE 22 MMOL/L (21-32); CHLORIDE 108 MMOL/L (98-107); CREATININE 0.7 MG/DL (0.55-1.30); POTASSIUM 3.8 MMOL/L (3.5-5.1); SODIUM 139 MMOL/L (136-145)
[2018-07-17] MEDS: Heparin 5000 units/ml inj SUBQ SCH ×2 (08:59→20:21)
[2018-07-17] MEDS: D5 1/2NS 1,000 ML IV SCH (10:13)
--- NOTE | 2018-07-17 12:31 | Consultation ---
DATE OF CONSULTATION: 07/17/2018 NOTE: POOR AUDIO CONSULTING PHYSICIAN: Bart Meadows M.D. HISTORY OF PRESENT ILLNESS: The patient is a 28-year-old female patient. Apparently, she came in to [facility]. She was seen and assessed in the ICU, and this patient had overdosed on Benadryl tablet and also intoxicated herself on alcohol, and apparently it was felt that may have been a suicide attempt Benadryl tablets. By the time she got to the ICU, she intubated initially, but then she extubated herself because she intubated herself on her own. She was highly agitated and irritable initially, so she was treated with times a day , but now she is more calm and cooperative; however, she is very confused on interview. She is oriented to name, but not really able to respond to any other questions . She is a very poor historian and two-point self-restraints because she has been agitated in the ER and she . MEDICAL HISTORY: There are no known medical problems. ALLERGIES: No known drug allergies. MEDICATIONS: No known psychotropic medications. SUBSTANCE ABUSE HISTORY: History of recent alcohol use. PAIN ASSESSMENT: 0/10. DEVELOPMENTAL PROBLEMS: Denies. FAMILY PSYCHIATRIC HISTORY: No known family psychiatric history. SOCIAL HISTORY: She lives in financially supported by . PSYCHIATRIC HISTORY: Major depressive disorder. For details of previous admissions at the time of interview. STRENGTHS: She is motivated to get better and support. WEAKNESSES: alcohol. MENTAL STATUS EXAMINATION: This is a 28-year-old female. Appearance is disheveled. Attitude, irritable and agitated. Affect is flat. Intellect is poor because she does not . Mood depressed and anxious. Motor activity, psychomotor agitation. Attention span is poor because she do not use at the time of interview. Orientation x1. She is only oriented to person, but not place, time, or situation. Speech, she has poverty of speech on interview. Thought process, disorganized and illogical. Thought content, paranoid . is poor because she has not been at the time of interview. Perceptual disturbances, she does not appear to have perceptual disturbances . Short-term memory, 0/3 word recall after 5 minutes delay. So, poor short-term memory at the time of interview. Long-term memory at the time of interview she does not recall long-term events in her life such as high school that she went to. Insight is poor because she does not have any recognition of her current cognitive . Judgment is poor because too many Benadryl tablets. Suicidality, multiple tablets of Benadryl . DIAGNOSES: 1. Major depressive disorder, severe, recurrent, without psychotic features. 2. Medical, denies. 3. Psychosocial stressors, financial stressors. PLAN: Because of the patient's severe agitation earlier in the ICU stay, I prescribed times a day Ativan agitation or anxiety. . Chart was reviewed and discussed with staff. Bart Meadows M.D. DR: NANCY JOB#: [id number] CC:
--- NOTE | 2018-07-17 13:31 | General Surgery Progress Note ---
General Surgery-Progress Note Subjective Symptoms: improved Additional Comments extubated. comfortable. no acute events. Objective Last 24 Hour Vital Signs Date Time Temp Pulse Resp B/P (MAP) Pulse Ox O2 Delivery O2 Flow Rate FiO2 07/17/18 12:00 Room Air Room Air 07/17/18 12:00 73 18 114/47 (69) 99 07/17/18 12:00 71 07/17/18 11:00 77 18 162/67 (98) 99 07/17/18 10:00 77 20 148/71 (96) 99 07/17/18 09:00 75 19 140/69 (92) 99 07/17/18 08:00 Room Air Room Air 07/17/18 08:00 78 07/17/18 08:00 98.9 77 19 100/55 (70) 99 07/17/18 07:00 79 19 117/61 (79) 100 07/17/18 06:00 75 19 120/66 (84) 97 07/17/18 05:00 82 20 140/68 (92) 97 07/17/18 04:00 97.9 76 18 120/66 (84) 99 07/17/18 04:00 Room Air Room Air 07/17/18 03:08 80 07/17/18 03:00 80 19 119/57 (77) 98 07/17/18 02:00 82 19 151/70 (97) 98 07/17/18 01:00 82 20 118/54 (75) 95 07/17/18 00:00 Room Air Room Air 07/17/18 00:00 98.8 80 18 146/59 (88) 100 07/16/18 23:16 88 07/16/18 23:00 85 20 117/62 (80) 97 07/16/18 22:00 85 24 126/57 (80) 97 07/16/18 21:00 85 19 107/52 (70) 97 07/16/18 20:00 98.8 81 23 104/61 (75) 99 07/16/18 20:00 Room Air Room Air 07/16/18 19:16 80 07/16/18 19:00 78 24 121/69 (86) 100 07/16/18 18:00 80 24 156/75 (102) 99 07/16/18 17:00 82 23 107/70 (82) 99 07/16/18 16:00 79 07/16/18 16:00 Room Air 07/16/18 16:00 98.6 79 23 101/59 (73) 99 07/16/18 15:00 88 16 110/70 (83) 100 07/16/18 14:00 83 16 119/66 (83) 100 07/16/18 13:32 Room Air 21 07/16/18 13:30 Room Air I&O Intake and Output 07/16/18 07/17/18 18:59 06:59 Intake Total 1132.16 ml 900 ml Output Total 600 ml 505 ml Balance 532.16 ml 395 ml Intake Oral 0 ml 0 ml IV Total 1132.16 ml 900 ml Output Urine Total 600 ml 505 ml Dressing: dry Wound: clean, intact Drains: none Cardiovascular: RSR Respiratory: clear Abdomen: soft, flat, non-tender, present bowel sounds Extremities: other Laboratory Tests Test 07/17/18 03:25 White Blood Count 4.7 K/UL (4.8-10.8) L Red Blood Count 3.56 M/UL (4.20-5.40) L Hemoglobin 10.3 G/DL (12.0-16.0) L Hematocrit 31.5 % (37.0-47.0) L Mean Corpuscular Volume 88 FL (80-99) Mean Corpuscular Hemoglobin 28.9 PG (27.0-31.0) Mean Corpuscular Hemoglobin Concent 32.7 G/DL (32.0-36.0) Red Cell Distribution Width 13.5 % (11.6-14.8) Platelet Count 197 K/UL (150-450) Mean Platelet Volume 6.7 FL (6.5-10.1) Neutrophils (%) (Auto) 65.0 % (45.0-75.0) Lymphocytes (%) (Auto) 25.9 % (20.0-45.0) Monocytes (%) (Auto) 6.4 % (1.0-10.0) Eosinophils (%) (Auto) 1.9 % (0.0-3.0) Basophils (%) (Auto) 0.7 % (0.0-2.0) Sodium Level 139 MMOL/L (136-145) Potassium Level 3.8 MMOL/L (3.5-5.1) Chloride Level 108 MMOL/L (98-107) H Carbon Dioxide Level 22 MMOL/L (21-32) Anion Gap 9 mmol/L (5-15) Blood Urea Nitrogen 6 mg/dL (7-18) L Creatinine 0.7 MG/DL (0.55-1.30) Estimat Glomerular Filtration Rate > 60 mL/min (>60) Glucose Level 97 MG/DL (74-106) Calcium Level 7.7 MG/DL (8.5-10.1) L Serum Alcohol < 3 mg/dL Plan Problems: (1) Laceration Assessment & Plan: left forearm laceration 5-6cm on ventral aspect with 3mm skin skin separation. prior sutures noted to be dislodged. 1cm deep in subcutaneous tissue but no involved structures. vascular exam benign. wound cleaned at bedside after evaluation. given recent events plan for reapproximation using steri-strips. moderate risk for infection / dehiscence if combative again. was able to reapproximate skin edges without tension with steri-strips. will monitor wound to ensure good healing and intervene as needed wound clean and dry dressing intact no signs or symptoms of infection okay to d/c from surgical standpoint remove dressings in 24hrs. monitor wound for infection may need reapproximation if dehiscence again thank you for allowing me to participate in patients care. Ric Diaz Jul 17, 2018 13:31
--- NOTE | 2018-07-17 14:30 | General Progress Note ---
Assessment/Plan Problem List: (1) Respiratory distress ICD Codes: R06.03 - Acute respiratory distress SNOMED: 956568121 (2) Diphenhydramine overdose ICD Codes: T45.0X1A - Poisoning by antiallergic and antiemetic drugs, accidental (unintentional), initial encounter SNOMED: 585295729 (3) Acute respiratory failure ICD Codes: J96.00 - Acute respiratory failure, unspecified whether with hypoxia or hypercapnia SNOMED: 27807442 (4) Suicide attempt ICD Codes: T14.91XA - Suicide attempt, initial encounter SNOMED: 18310302 Status: stable, progressing Assessment/Plan psyc care neph f/u ivf cbc bmp am Subjective Constitutional: Reports: weakness Allergies: Coded Allergies: No Known Allergies (Unverified , 07/15/18) All Systems: reviewed and negative except above Subjective sleepy in bed Objective Last 24 Hour Vital Signs Date Time Temp Pulse Resp B/P (MAP) Pulse Ox O2 Delivery O2 Flow Rate FiO2 07/17/18 14:00 97.0 68 21 133/71 (91) 99 07/17/18 13:00 79 21 126/48 (74) 99 07/17/18 12:00 Room Air Room Air 07/17/18 12:00 73 18 114/47 (69) 99 07/17/18 12:00 71 07/17/18 11:00 77 18 162/67 (98) 99 07/17/18 10:00 77 20 148/71 (96) 99 07/17/18 09:00 75 19 140/69 (92) 99 07/17/18 08:00 Room Air Room Air 07/17/18 08:00 78 07/17/18 08:00 98.9 77 19 100/55 (70) 99 07/17/18 07:00 79 19 117/61 (79) 100 07/17/18 06:00 75 19 120/66 (84) 97 07/17/18 05:00 82 20 140/68 (92) 97 07/17/18 04:00 97.9 76 18 120/66 (84) 99 07/17/18 04:00 Room Air Room Air 07/17/18 03:08 80 07/17/18 03:00 80 19 119/57 (77) 98 07/17/18 02:00 82 19 151/70 (97) 98 07/17/18 01:00 82 20 118/54 (75) 95 07/17/18 00:00 Room Air Room Air 07/17/18 00:00 98.8 80 18 146/59 (88) 100 07/16/18 23:16 88 07/16/18 23:00 85 20 117/62 (80) 97 07/16/18 22:00 85 24 126/57 (80) 97 07/16/18 21:00 85 19 107/52 (70) 97 07/16/18 20:00 98.8 81 23 104/61 (75) 99 07/16/18 20:00 Room Air Room Air 07/16/18 19:16 80 07/16/18 19:00 78 24 121/69 (86) 100 07/16/18 18:00 80 24 156/75 (102) 99 07/16/18 17:00 82 23 107/70 (82) 99 07/16/18 16:00 79 07/16/18 16:00 Room Air 07/16/18 16:00 98.6 79 23 101/59 (73) 99 07/16/18 15:00 88 16 110/70 (83) 100 Intake and Output 07/16/18 07/17/18 18:59 06:59 Intake Total 1132.16 ml 900 ml Output Total 600 ml 505 ml Balance 532.16 ml 395 ml Intake Oral 0 ml 0 ml IV Total 1132.16 ml 900 ml Output Urine Total 600 ml 505 ml Laboratory Tests 07/17/18 03:25: White Blood Count 4.7L, Red Blood Count 3.56L, Hemoglobin 10.3L, Hematocrit 31.5L, Mean Corpuscular Volume 88, Mean Corpuscular Hemoglobin 28.9, Mean Corpuscular Hemoglobin Concent 32.7, Red Cell Distribution Width 13.5, Platelet Count 197, Mean Platelet Volume 6.7, Neutrophils (%) (Auto) 65.0, Lymphocytes (% ) (Auto) 25.9, Monocytes (%) (Auto) 6.4, Eosinophils (%) (Auto) 1.9, Basophils ( %) (Auto) 0.7, Sodium Level 139, Potassium Level 3.8, Chloride Level 108H, Carbon Dioxide Level 22, Anion Gap 9, Blood Urea Nitrogen 6L, Creatinine 0.7, Estimat Glomerular Filtration Rate > 60, Glucose Level 97, Calcium Level 7.7L, Serum Alcohol < 3 Height (Feet): 5 Height (Inches): 6.00 Weight (Pounds): 152 General Appearance: lethargic EENT: normal ENT inspection Neck: normal alignment Cardiovascular: normal peripheral pulses, normal rate, regular rhythm Respiratory/Chest: chest wall non-tender, lungs clear, normal breath sounds Abdomen: normal bowel sounds, non tender, soft Extremities: normal inspection Edema: no edema noted Arm (L), no edema noted Arm (R), no edema noted Leg (L), no edema noted Leg (R), no edema noted Pedal (L), no edema noted Pedal (R), no edema noted Generalized Neurologic: responsive, motor weakness Skin: normal pigmentation, warm/dry Jozef Alvarez DO Jul 17, 2018 14:30
--- NOTE | 2018-07-17 15:51 | Pulmonolgy Critical Care Note ---
Critical Care - Asmt/Plan Problems: (1) Acute respiratory failure (2) Suicide attempt Assessment/Plan: pt is extibated and is medically cleared to go to [facility] facility Respiratory: monitor respiratory rate, adjust FIO2 Renal: F/U I&O Gastrointestinal: continue feedings/current rate Endocrine: monitor blood sugar Neurologic: PRN Ativan, PRN Morphine Disposition: transfer to Discussed with: nurses, consultants, case pickerbilling manager - Objective Last 24 Hour Vital Signs Date Time Temp Pulse Resp B/P (MAP) Pulse Ox O2 Delivery O2 Flow Rate FiO2 07/17/18 14:00 97.0 68 21 133/71 (91) 99 07/17/18 13:00 79 21 126/48 (74) 99 07/17/18 12:00 Room Air Room Air 07/17/18 12:00 73 18 114/47 (69) 99 07/17/18 12:00 71 07/17/18 11:00 77 18 162/67 (98) 99 07/17/18 10:00 77 20 148/71 (96) 99 07/17/18 09:00 75 19 140/69 (92) 99 07/17/18 08:00 Room Air Room Air 07/17/18 08:00 78 07/17/18 08:00 98.9 77 19 100/55 (70) 99 07/17/18 07:00 79 19 117/61 (79) 100 07/17/18 06:00 75 19 120/66 (84) 97 07/17/18 05:00 82 20 140/68 (92) 97 07/17/18 04:00 97.9 76 18 120/66 (84) 99 07/17/18 04:00 Room Air Room Air 07/17/18 03:08 80 07/17/18 03:00 80 19 119/57 (77) 98 07/17/18 02:00 82 19 151/70 (97) 98 07/17/18 01:00 82 20 118/54 (75) 95 07/17/18 00:00 Room Air Room Air 07/17/18 00:00 98.8 80 18 146/59 (88) 100 07/16/18 23:16 88 07/16/18 23:00 85 20 117/62 (80) 97 07/16/18 22:00 85 24 126/57 (80) 97 07/16/18 21:00 85 19 107/52 (70) 97 07/16/18 20:00 98.8 81 23 104/61 (75) 99 07/16/18 20:00 Room Air Room Air 07/16/18 19:16 80 07/16/18 19:00 78 24 121/69 (86) 100 07/16/18 18:00 80 24 156/75 (102) 99 07/16/18 17:00 82 23 107/70 (82) 99 07/16/18 16:00 79 07/16/18 16:00 Room Air 07/16/18 16:00 98.6 79 23 101/59 (73) 99 Status: awake HEENT: atraumatic Neck: full ROM Heart: HR/BP stable Abdomen: non-tender Extremities: no C/C/E Decubiti: location Critical Care - Subjective Interval Events: extubated doing better FI02: 21 Vent Support Breath Rate: 16 Vent Support Mode: AC Vent Tidal Volume: 600 Sputum Amount: Moderate PEEP: 0.0 PIP: 16 I&O: Intake and Output 07/16/18 07/17/18 18:59 06:59 Intake Total 1132.16 ml 900 ml Output Total 600 ml 505 ml Balance 532.16 ml 395 ml Intake Oral 0 ml 0 ml IV Total 1132.16 ml 900 ml Output Urine Total 600 ml 505 ml ET-Tube: 7.5 ET Position: 21 Ubaldo Mcintosh MD Jul 17, 2018 15:51
--- NOTE | 2018-07-17 21:46 | Consultation ---
DATE OF CONSULTATION: 07/17/2018 "NOTE: POOR ADUIO QUALITY" PSYCHOTHERAPY CONSULTATION PROGRESS NOTE CONSULTING PHYSICIAN: Jun Dunham PsyD. TREATING ATTENDING PHYSICIAN: Jozef Alvarez D.O. HISTORY OF PRESENT ILLNESS: The patient is 28-year-old female patient, who was brought in to the hospital. She has been overdosed on Benadryl. The patient with also possible suicide attempt and respiratory failure. Apparently, the patient was brought to the [facility] after ingesting multiple doses of Benadryl. Shortly thereafter, she had respiratory failure, was intubated, and admitted to ICU. The patient has been sedated, very lethargic, nonverbal at that time, and confused. For these reasons, she was referred for psychotherapeutic services. This clinician assessed this patient. However, the patient was disorganized and confused, however, awake and verbal. The patient states that she has been feeling depressed, did not know why she took the medication. She stated she took the Benadryl because she wanted to . The patient also stated that she had fallen on the corner of the kitchen . The patient stated she had some difficulty with extreme stresses and for these reasons, she has been feeling depressed and helpless and states that she has a history of ADHD. The patient's family was also present. The patient's mother and father provided the information and history of the patient. They stated she does have a history of depression and has been taking antidepressant. The patient has had history of psychiatric hospitalizations as well for possible substance uses in the past. The patient has a history of substance abuse including methamphetamines and alcohol. Mother states . PAST MEDICAL HISTORY: There is no significant medical history at this time. ALLERGIES: The patient has no known drug allergies. SUBSTANCE ABUSE HISTORY: The patient has a history of amphetamine use and alcohol use. SOCIAL HISTORY: The patient apparently lives with her parents. She is a 28-year-old single female patient. MENTAL STATUS EXAMINATION: The patient is alert and oriented to person and place. Mood dysphoric. Affect blunted. Thought process, disorganized. Thought content, confused. Poor attention and concentration. Poor insight, judgment, and impulse control. DIAGNOSES: [place] I: Major depressive disorder, recurrent, severe without psychotic features. AXIS II: Deferred. AXIS III: As per H and P. PLAN: This clinician assessed the patient. Provided the patient with supportive psychotherapy. processing depression and helplessness. Provided the patient reality orientation. . This clinician has reviewed the patient's chart. Discussed treatment with treatment team. . Jun Dunham PsyD. DR: AISHA JOB#: [id number] CC:
[2018-07-17] MEDS ORDERED: NS 275ml ONE (21:59)
[2018-07-17] MEDS ORDERED: D5 1/2NS 1000ml IV ONE (21:59)
--- NOTE | 2018-07-18 11:20 | Discharge Summary ---
Discharge Summary Discharge Summary _ DATE OF ADMISSION: 07/15/2018 DATE OF DISCHARGE: 07/17/2018 REASON FOR ADMISSION: 28 years old female with history of psychiatric disorder , presented to emergency room after overdose on Benadryl and slashing her left forearm. Laceration was repaired in emergency department . Urine toxicology screen was positive for marijuana and amphetamine . Alcohol level 203. Patient initially stabilized in ED, however later patient decompensated and required emergent oral intubation . Poison Control Center contacted. Patient was admitted to ICU for further management with diagnoses of acute respiratory failure requiring intubation, suicidal attempt, overdose with Benadryl, left forearm laceration ,status post repair ,alcohol intoxication, drug abuse/amphetamine. CONSULTANTS: pulmonary Dr. Mcintosh surgery Dr. Diaz psychiatrist Dr. Meadows [facility] COURSE: Patient admitted to ICU. Ventilator support and pulmonary toilet provided. patient was follow up with the chest x ray and ABGs. Patient initially was placed on sedation with propofol. Patient subsequently was able to be extubated. During erratic and anxious behavior in emergency department, laceration became dehisced. Surgeon consulted for repair of laceration. Given history of dehiscence , steri strips were placed with close approximation. Potassium was replaced. Renal parameters electrolytes were closely monitored , remained stable. Echocardiogram revealed preserved ejection fraction of 55%, no evidence of wall motion abnormality. Kbya-vl-[id number] mitral regurgitation and moderate aortic insufficiency. Carotid duplex was essentially stable [employer] cleared patient for transfer to psychiatric facility. Psychiatrist closely followed. Psychiatrist optimized psychiatric medication regimen. Patient was subsequently transferred to psychiatric hospital [facility] for further management. FINAL DIAGNOSES: Acute respiratory failure requiring intubation status post extubation Suicidal attempt Benadryl overdose Left forearm laceration, status post repair Alcohol intoxication Drug abuse/amphetamine Major depressive disorder, severe recurrent ,without psychotic features DISCHARGE MEDICATIONS: See Medication Reconciliation list. DISCHARGE INSTRUCTIONS: Patient was transferred to psychiatric hospital [facility] for further management I have been assigned to dictate discharge summary for this account. I was not involved in the patient's management. Sophia Jaramillo NP Jul 18, 2018 11:20
== END 2018-07-17 22:00 | DRG 907 ==
LOC: EDBD 06:12 → EMR 06:25 → EDBEDREQSVC 17:21 → ICU 17:33 → EDBEDREQ 19:54
PROC: 5A1935Z Respiratory Ventilation, Less than 24 Consecutive Hours (ICD-10-PCS; principal; 2018-07-15)
PROC: 0JQH0ZZ Repair Left Lower Arm Subcutaneous Tissue and Fascia, Open Approach (ICD-10-PCS; principal; 2018-07-15)
PROC: 0BH17EZ Insertion of Endotracheal Airway into Trachea, Via Natural or Artificial Opening (ICD-10-PCS; principal; 2018-07-15)
DX: T45.0X2A Poisoning by antiallergic and antiemetic drugs, intentional self-harm, initial encounter (principal); J96.00 Acute respiratory failure, unspecified whether with hypoxia or hypercapnia; F33.2 Major depressive disorder, recurrent severe without psychotic features; S51.812A Laceration without foreign body of left forearm, initial encounter; X78.1XXA Intentional self-harm by knife, initial encounter; F10.129 Alcohol abuse with intoxication, unspecified; F15.10 Other stimulant abuse, uncomplicated; T14.91XA Suicide attempt, initial encounter; R41.0 Disorientation, unspecified; I34.0 Nonrheumatic mitral (valve) insufficiency; I35.1 Nonrheumatic aortic (valve) insufficiency
CPT/HCPCS: 36415; 36600; 71045; 80048; 80053; 80076; 80307; 80329; 81025; 82550; 82803; 83615; 84100; 84478; 84484; 85007; 85025; 85610; 85730; 93005; 93306; 93880; 94002; 94003; 94664; 99291; J2405; J8499